=== PATIENT | female | born 1950 | race Caucasian/White ===

== ENCOUNTER 2019-07-20 21:11 | Emergency (ER) | payer OTHER ==
[~2019-07-20] VITALS: Ht 154.9 cm; Wt 59.0 kg
[2019-07-20] MEDS ORDERED: ASA325 MG (21:30)
[2019-07-20] MEDS ORDERED: HYDROCHLOROTHIA25 MG (21:30)
[2019-07-20] MEDS ORDERED: LIPITOR40 MG (21:31)
[2019-07-20] MEDS ORDERED: XARELTO10 MG (21:31)
== END 2019-07-21 14:15 | disposition left against medical advice (07) ==
LOC: ER 21:11
DX: I82.431 Acute embolism and thrombosis of right popliteal vein (principal); I82.441 Acute embolism and thrombosis of right tibial vein